=== PATIENT | male | born 1970 | race American Indian/Alaskan Native ===

== ENCOUNTER 2017-08-08 09:34 | Emergency (ER) | payer SELFPAY | END 2017-08-08 11:22 | disposition left against medical advice (07) | LOC: ED 09:34 | DX: R05 Cough (principal); R09.81 Nasal congestion; Z53.21 Procedure and treatment not carried out due to patient leaving prior to being seen by health care provider ==

== ENCOUNTER 2017-08-17 10:01 | Emergency (ER) | payer SELFPAY | END 2017-08-17 10:02 | disposition left against medical advice (07) | LOC: ED 10:01 | DX: R06.02 Shortness of breath (principal); Z53.21 Procedure and treatment not carried out due to patient leaving prior to being seen by health care provider ==

== ENCOUNTER 2017-09-15 11:16 | Emergency (ER) | payer MEDICAID ==
[2017-09-15 11:25] VITALS: BP 126/76
[2017-09-15] MEDS ORDERED: ATROVENT IH ONE (11:40)
[2017-09-15] MEDS ORDERED: PROVENTIL IH ONE (11:40)
[2017-09-15] MEDS ORDERED: DELTASONE PO ONE (11:40)
--- NOTE | 2017-09-15 11:42 | Emergency Department Report ---
Chief Complaint: Adult Asthma Stated Complaint: ASTHMA/ANN Time Seen by Provider: 09/15/17 11:38 - HPI History of Present Illness: 47-year-old -[place] male presents to the emergency department with a 3 or 4 day history of some shortness of breath, wheezing, dry cough that he believes is an exacerbation of his asthma. He has a nebulizer machine but no medication for it and does not have any inhaler. He is a tobacco smoker. No fever, chest pain, nausea, vomiting or diaphoresis. No other past medical history. He does not have a primary care physician. - ROS Review of Systems: Positive for shortness of breath, wheezing, dry cough Negative for fever, chest pain, back pain, nausea, vomiting or diaphoresis - Exam Vital Signs: Vital Signs 09/15/17 09/15/17 11:19 11:32 Temperature 98.6 F Pulse Rate 105 H 98 H Respiratory 22 Rate Blood Pressure 126/76 O2 Sat by Pulse 94 Oximetry Physical Exam: Patient is awake and alert in no acute distress. Heart sounds are normal auscultation. He has some mild wheezing throughout the chest. No respiratory distress. MSE screening note: Focused history and physical exam performed. Due to findings the following was ordered: He will have some breathing treatments and will be given a dose of oral steroids. ED Disposition for MSE Condition: Stable
--- NOTE | 2017-09-15 12:19 | Emergency Department Report ---
HPI - General Chief Complaint: Adult Asthma Time Seen by Provider: 09/15/17 11:38 - HPI HPI: 47-year-old -[place] male presents to the emergency department with a 3 or 4 day history of some shortness of breath, wheezing, dry cough that he believes is an exacerbation of his asthma. He has a nebulizer machine but no medication for it and does not have any inhaler. He is a tobacco smoker. No fever, chest pain, nausea, vomiting or diaphoresis. No other past medical history. He does not have a primary care physician. ED Past Medical Hx - Past Medical History Hx Asthma: Yes - Social History Smoking Status: Current Every Day Smoker Substance Use Type: None - Medications Home Medications: Home Medications Medication Instructions Recorded Confirmed Last Taken Type ALBUTEROL Inhaler [ProAir HFA 2 puff IH QID PRN #1 inhalation 09/15/17 Unknown Rx Inhaler] ALBUTEROL NEB's [Proventil 0.083% 2.5 mg IH TID PRN #1 box 09/15/17 Unknown Rx NEBS] predniSONE [Deltasone] 20 mg PO BID #10 tab 09/15/17 Unknown Rx ED Review of Systems ROS: Stated complaint: ASTHMA/ANN Other details as noted in HPI Comment: All other systems reviewed and negative Constitutional: denies: chills, fever Eyes: denies: eye pain, eye discharge, vision change ENT: denies: ear pain, throat pain Respiratory: cough, shortness of breath, wheezing Cardiovascular: denies: chest pain, palpitations Gastrointestinal: denies: abdominal pain, nausea, diarrhea Genitourinary: denies: urgency, dysuria Musculoskeletal: denies: back pain, joint swelling, arthralgia Skin: denies: rash, lesions Neurological: denies: headache, weakness, paresthesias Physical Exam - Physical Exam Vital Signs: Vital Signs 09/15/17 09/15/17 11:19 11:32 Temperature 98.6 F Pulse Rate 105 H 98 H Respiratory 22 Rate Blood Pressure 126/76 O2 Sat by Pulse 94 Oximetry Physical Exam: GENERAL: The patient is well-developed well-nourished. HENT: Normocephalic. Atraumatic. Patient has moist mucous membranes. EYES: Extraocular motions are intact. Pupils equal reactive to light bilaterally. NECK: Supple. Trachea is midline. CHEST/LUNGS: Mild wheezing throughout the chest. No tachypnea or accessory muscle use. There is no respiratory distress noted. HEART/CARDIOVASCULAR: Regular. There is no tachycardia. There is no murmur. ABDOMEN: Abdomen is soft, nontender. Patient has normal bowel sounds. There is no abdominal distention. SKIN: Skin is warm and dry. NEURO: The patient is awake, alert, and oriented. The patient is cooperative. The patient has no focal neurologic deficits. The patient has normal speech and gait. MUSCULOSKELETAL: There is no tenderness or deformity. There is no limitation range of motion. There is no evidence of acute injury. ED Course Vital Signs 09/15/17 09/15/17 11:19 11:32 Temperature 98.6 F Pulse Rate 105 H 98 H Respiratory 22 Rate Blood Pressure 126/76 O2 Sat by Pulse 94 Oximetry ED Medical Decision Making - Medical Decision Making Patient presents with some mild wheezing and/or bronchospasm with history of asthma. He has had no medications at home to use. Vital stable including being afebrile. He was given a breathing treatment here and says that he is feeling improved. I requested to do a chest x-ray but the patient refused any imaging or labs. He appears stable for discharge home and was given a refill of his albuterol nebulizer treatments, and he was placed on a 5 day course of steroids with an albuterol inhaler prescribed as well. He was given referral for primary care doctors. He was instructed to return to the emergency Department with any worsening of symptoms or any acute distress. - Differential Diagnosis asthma, bronchitis, pneumonia, URI Critical Care Time: No Critical care attestation.: If time is entered above; I have spent that time in minutes in the direct care of this critically ill patient, excluding procedure time. ED Disposition Clinical Impression: Bronchospasm, Tobacco use disorder Asthma exacerbation Qualifiers: Asthma severity: unspecified severity Asthma persistence: unspecified Qualified Code(s): J45.901 - Unspecified asthma with (acute) exacerbation Disposition: - TO HOME OR SELFCARE Is pt being admited?: No Condition: Stable Instructions: Asthma (ED), How to Stop Smoking (ED) Additional Instructions: Please follow up with a primary care physician in the next few days. Return to the emergency Department with any worsening of your symptoms or any acute distress. Prescriptions: ALBUTEROL Inhaler [ProAir HFA Inhaler] 2 puff IH QID PRN #1 inhalation PRN Reason: Shortness Of Breath ALBUTEROL NEB's [Proventil 0.083% NEBS] 2.5 mg IH TID PRN #1 box PRN Reason: Wheezing predniSONE [Deltasone] 20 mg PO BID #10 tab Referrals: LIZY BALDERAS MD [Staff Physician] - 3-5 Days [facility] [Outside] - 3-5 Days Time of Disposition: 12:19
== END 2017-09-15 12:24 | disposition home or self-care (01) ==
LOC: ED 11:16
DX: J98.01 Acute bronchospasm (principal); Z72.0 Tobacco use
CPT/HCPCS: 94640; 99283; J7512